=== PATIENT | female | born 1970 | race Caucasian/White ===

== ENCOUNTER → 2016-08-07 | Outpatient (CLI) | payer OTHER ==
--- NOTE | 2016-08-07 21:59 | WWHP ---
CHIEF COMPLAINT: The patient is here for her routine gynecologic exam and mammogram. HPI: This is a 46-year-old, G2, P2 with an LMP of 07/10/2016. The patient is without gynecologic complaints and her is status post vasectomy. She states her periods are regular every month. She did have an ultrasound in 2014, which showed a right complex ovarian cyst measuring 1.7 cm and small fibroids as well as some nabothian cysts. Followup mammogram in 2 to 3 months was recommended, but this was not done. PAST MEDICAL HISTORY: Seizure disorder diagnosed in 2004. She no longer takes prescription medications for this. MEDICATIONS: 1. Ambien 1 q.h.s. 2. Naproxen p.r.n. and 3. Hydrocodone p.r.n. 4. She is using CBD cannabis oil daily and she takes this because of her seizure disorder. ALLERGIES: No known drug allergies. PAST SURGICAL HISTORY: Right rotator cuff surgery in 2007. 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 SOCIAL HISTORY: She admits to smoking 2 cigarettes per day and has about 10 alcoholic drinks per year and denies drug use. She does use the cannabis oil as above. 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 FAMILY HISTORY: Unchanged from the 2015 H&P. REVIEW OF SYSTEMS: Weight has been stable. She denies respiratory, cardiac or GI problems. PHYSICAL EXAM: Blood pressure 128/69. Height 5 feet 4 inches. Weight 175 pounds. Temperature 97.9, pulse 75. This is a well-developed, well-nourished white female who is alert and oriented x3, in no acute distress. HEENT is within normal limits. NECK: Supple without mass or thyromegaly. CHEST AND LUNGS: Clear to auscultation. HEART: Regular rate and rhythm. Breasts are without mass or discharge. Axillary is negative for adenopathy. BACK: Negative for CVA tenderness. ABDOMEN: Soft, nontender, without palpable masses. PELVIC: Normal external genitalia. Cervix and vagina appear normal. There is no significant atrophy. There is no evidence of prolapse. The uterus is midposition, nongravid size and nontender. There are no palpable adnexal masses or tenderness. Rectovaginal is negative for mass or tenderness and is negative for occult blood. EXTREMITIES: Nontender. IMPRESSION: 1. A 46-year-old female whose is status post vasectomy with normal gynecologic exam. 2. History of complex right ovarian cyst in 2015 measuring 1.7 cm with no significant physical findings at this time. She did not have the followup ultrasound recommended. PLAN: 1. Pap smear was deferred, since her last normal one was less than 2 years ago. 2. Self-breast examination was discussed. 3. Mammogram will be done today. 4. Pelvic ultrasound will be scheduled for followup of the right ovarian cyst and a slip was given to patient for this. 5. She will return in 1 year.
--- NOTE | 2016-08-09 10:14 | MM ---
Reason for exam: screening (asymptomatic). Last mammogram was performed 1 year and 5 months ago. Physical Findings: A clinical breast exam by your physician is recommended on an annual basis and results should be correlated with mammographic findings. MG Screening Mammo w CAD Bilateral CC and MLO view(s) were taken. Prior study comparison: March 01, 2015, bilateral MG screening mammo w CAD. March 20, 2013, bilateral digital screening mammo w/CAD. There are scattered fibroglandular densities. No significant changes when compared with prior studies. ASSESSMENT: Negative, BI-RAD 1 RECOMMENDATION: Routine screening mammogram of both breasts in 1 year.
== END | disposition home or self-care (01) ==
LOC: WWCWWP 13:24
PROVIDERS: ATTEND Obstetrics & Gynecology
DX: Z12.31 Encounter for screening mammogram for malignant neoplasm of breast (principal); G40.909 Epilepsy, unspecified, not intractable, without status epilepticus; F17.200 Nicotine dependence, unspecified, uncomplicated; Z79.899 Other long term (current) drug therapy

== ENCOUNTER → 2017-08-21 | Outpatient (CLI) | payer OTHER ==
--- NOTE | 2017-08-21 22:22 | MR ---
EXAMINATION TYPE: MR brain wo con DATE OF EXAM: 08/21/2017 COMPARISON: NONE HISTORY: 47-year-old female arachnoid cyst, dizziness, epilepsy and specified, not intractable. TECHNIQUE: Multiplanar, multisequence images of the brain and brainstem were acquired without IV con trast. Diffusion weighted imaging is performed. FINDINGS: No evidence for acute infarction, hemorrhage, mass, mass effect, midline shift, herniation, effacemen t of basal cisterns, or extra-axial fluid collection. The ventricles and sulci are age-appropriate. Major intracranial flow voids are intact. There is a rounded 6 mm area of signal void near the expect ed region of the anterior indicating artery, axial image 14. T2/FLAIR weighted sequences show no white matter signal abnormality. There is symmetrical and normal-appearing volume to the hippocampi. No abnormal temporal horn dilatat ion and no discrete heterotopia is identified. Midline structures demonstrate normal morphology. The craniocervical junction is normal. There is mild mucosal thickening within the ethmoid air cells and maxillary sinuses. Globes are intac t. IMPRESSION: 1. Findings suspicious for possible 6 mm ACOM aneurysm. Recommend further evaluation with MRA of the [place] of [place]. 2. Otherwise, no intracranial abnormality seen. 3. 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
== END | disposition home or self-care (01) ==
LOC: RADMRIMAIN 19:47
PROVIDERS: ATTEND Psychiatry & Neurology Neurology
DX: G40.909 Epilepsy, unspecified, not intractable, without status epilepticus (principal)
CPT/HCPCS: 70551

== ENCOUNTER → 2017-10-03 | Outpatient (CLI) | payer OTHER ==
--- NOTE | 2017-10-03 23:04 | MR ---
EXAMINATION TYPE: MR angio head wo con DATE OF EXAM: 10/03/2017 COMPARISON: Correlation MRI brain 08/21/2017 HISTORY: 47-year-old female unspecified epilepsy, not intractable. Abnormality on MRI. TECHNIQUE: High-resolution 3-D alxw-ht-vajdcd images focusing on the [place] of [place] were performed without contrast. FINDINGS: There is early takeoff of the right posterior inferior cerebellar artery from the upper V3 segment ri ght vertebral artery. The left vertebral artery is dominant. There is persistent origin to the right posterior cerebral artery. There is a hypoplastic A1 segment right anterior cerebral artery. The A2 segments arise from a 7 mm s accular aneurysm which projects inferiorly at the level of the anterior communicating artery. No significant stenosis or arterial occlusion seen. 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 The A2 segments arise from the superior margin of the aneurysm and are supplied by the left AJ. 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
== END | disposition home or self-care (01) ==
LOC: RADMRIMAIN 21:50
PROVIDERS: ATTEND Nurse Practitioner Acute Care
DX: I67.1 Cerebral aneurysm, nonruptured (principal)
CPT/HCPCS: 70544

== ENCOUNTER → 2019-01-05 | Outpatient (CLI) | payer OTHER ==
[2019-01-05 15:40] LABS: Progesterone 12.4 ng/mL
== END | disposition home or self-care (01) ==
LOC: LABWHC1 10:27
PROVIDERS: ATTEND Obstetrics & Gynecology
DX: N95.1 Menopausal and female climacteric states (principal); G40.509 Epileptic seizures related to external causes, not intractable, without status epilepticus
CPT/HCPCS: 36415; 82670; 83001; 83002; 84144; 84146; 84443

== ENCOUNTER → 2019-12-22 | Outpatient (CLI) | payer BC ==
[2019-12-22 10:39] LABS: HCT 44.9 % (34.0-46.0); MCH 32.5 pg (25.0-35.0); MCHC 33.5 g/dL (31.0-37.0); MCV 96.7 fL (80.0-100.0); Platelet Count 291 k/uL (150-450); RBC 4.64 m/uL (3.80-5.40); WBC 7.5 k/uL (3.8-10.6)
[2019-12-22 16:14] LABS: Progesterone 15.5 ng/mL
[2019-12-22 17:58] LABS: Chol/HDL Ratio 2.44; LDL Cholesterol,Calculated 110.2 mg/dL (0.0-131.0); VLDL Calculation 10.8 mg/dL (5.00-40.00)
[2019-12-22 18:05] LABS: Luteinizing Hormone 5.7 mIU/mL; Prolactin 10.9 ng/mL (2.8-29.2)
[2019-12-22 18:06] LABS: Estradiol 130.3 pg/mL; Follicle Stimulating Hormone 6.8 mIU/mL
== END | disposition home or self-care (01) ==
LOC: LABWHC1 09:50
PROVIDERS: ATTEND Obstetrics & Gynecology
DX: N93.8 Other specified abnormal uterine and vaginal bleeding (principal); Z13.220 Encounter for screening for lipoid disorders; Z13.29 Encounter for screening for other suspected endocrine disorder
CPT/HCPCS: 36415; 80061; 82670; 82947; 83001; 83002; 84144; 84146; 84439; 84443; 84479; 85027

== ENCOUNTER → 2019-12-22 | Outpatient (CLI) | payer BC ==
--- NOTE | 2019-12-23 08:24 | MM ---
Reason for exam: screening (asymptomatic). Last mammogram was performed 3 years and 5 months ago. History: Took hormonal contraceptives for 5 years. Physical Findings: A clinical breast exam by your physician is recommended on an annual basis and results should be correlated with mammographic findings. MG Screening Mammo w CAD Bilateral CC and MLO view(s) were taken. Prior study comparison: August 07, 2016, bilateral MG screening mammo w CAD. March 01, 2015, bilateral MG screening mammo w CAD. There are scattered fibroglandular densities. There is no discrete abnormality. No significant changes when compared with prior studies. ASSESSMENT: Negative, BI-RAD 1 RECOMMENDATION: Routine screening mammogram of both breasts in 1 year.
== END | disposition home or self-care (01) ==
LOC: RADMAMWWP 09:27
PROVIDERS: ATTEND Obstetrics & Gynecology
DX: Z12.31 Encounter for screening mammogram for malignant neoplasm of breast (principal)
CPT/HCPCS: 77067

== ENCOUNTER → 2020-10-11 | Outpatient (CLI) | payer BC ==
[2020-10-11 21:17] LABS: Basophils % (A) 1.3 %; Eosinophils # (A) 0.33 X 10*3/uL (0.04-0.35); Eosinophils % (A) 4.3 %; HGB 15.4 g/dL (12.0-15.0); Lymphocytes # (A) 2.46 X 10*3/uL (0.90-5.00); Lymphocytes % (A) 31.9 %; MCH 31.2 pg (27.0-32.0); MCHC 32.8 g/dL (32.0-37.0); MCV 95.1 fL (80.0-97.0); Mean Platelet Volume 10.5 fL (9.5-12.2); Monocytes # (A) 0.68 X 10*3/uL (0.20-1.00); Monocytes % (A) 8.8 %; Neutrophils # (A) 4.12 X 10*3/uL (1.80-7.70); Neutrophils % (A) 53.4 %; Platelet Count 326 X 10*3/uL (140-440); RBC 4.94 X 10*6/uL (4.10-5.20); RDW 12.9 % (11.5-14.5); WBC 7.71 X 10*3/uL (4.50-10.00)
[2020-10-11 23:42] LABS: Hemoglobin A1C 5.2 % (4.0-6.0)
[2020-10-12 00:22] LABS: African American GFR (CKD) 76.1 (60.0-200.0); Albumin 4.7 g/dL (3.80-4.90); Albumin/Globulin Ratio 2.24 (1.60-3.17); Anion Gap 9.7 mmol/L (4.00-12.00); Carbon Dioxide 23.3 mmol/L (21.6-31.8); Chol/HDL Ratio 3.24; Globulin 2.1 g/dL (1.6-3.3); Non-African American GFR(CKD) 65.6 (60.0-200.0); Potassium 4.7 mmol/L (3.5-5.5); Total Bilirubin 0.5 mg/dL (0.3-1.2); Total Protein 6.8 g/dL (6.2-8.2)
== END | disposition home or self-care (01) ==
LOC: LABWHC1 11:16
PROVIDERS: ATTEND Nurse Practitioner Acute Care
DX: E55.9 Vitamin D deficiency, unspecified (principal); E78.5 Hyperlipidemia, unspecified; R53.83 Other fatigue; R51.9 Headache, unspecified
CPT/HCPCS: 36415; 80053; 80061; 82306; 83036; 85025

== ENCOUNTER → 2021-07-31 | Outpatient (CLI) | payer BC ==
--- NOTE | 2021-08-01 10:34 | MM ---
Reason for exam: screening (asymptomatic). Last mammogram was performed 1 year and 7 months ago. History: Took hormonal contraceptives for 5 years. Taking estrogen beginning at age 51. Physical Findings: A clinical breast exam by your physician is recommended on an annual basis and results should be correlated with mammographic findings. MG Screening Mammo w CAD Bilateral CC and MLO view(s) were taken. Prior study comparison: December 22, 2019, bilateral MG screening mammo w CAD. August 07, 2016, bilateral MG screening mammo w CAD. The breast tissue is heterogeneously dense. This may lower the sensitivity of mammography. There is no discrete abnormality. No significant changes when compared with prior studies. ASSESSMENT: Negative, BI-RAD 1 RECOMMENDATION: Routine screening mammogram of both breasts in 1 year.
== END | disposition home or self-care (01) ==
LOC: RADMAMWWP 16:04
PROVIDERS: ATTEND Family Medicine
DX: Z12.31 Encounter for screening mammogram for malignant neoplasm of breast (principal)
CPT/HCPCS: 77067

== ENCOUNTER 2021-11-28 10:19 | Day surgery (SDC) | payer BC ==
[2021-11-24 09:20] VITALS: BMI 29.5
[~2021-11-28 10:19] MED LIST: LACTATED RINGERS 1,000 ML IV SCH; LIDOCAINE 1% (10MG/ML) FOR IV START INTRADERMA PRN
[2021-11-28 10:51] VITALS: TEMP 97.6
[2021-11-28] MEDS ORDERED: PROPOFOL 10 MG/ML 20 ML VIAL IV ONE (11:13)
--- NOTE | 2021-11-28 11:16 | P.GSHP ---
History of Present Illness H&P Date: 11/28/21 Chief Complaint: Colon cancer screening 51-year-old female here today for colonoscopy. She has not had 1 previously. No bowel complaints. No family history of colon cancer. Past Medical History Past Medical History: Seizure Disorder Additional Past Medical History / Comment(s): epilepsy-last seizure 2020-complex partial seizures,brain aneurysm,degenerative vidal hips-chronic pain History of Any Multi-Drug Resistant Organisms: None Reported Past Surgical History: Orthopedic Surgery Additional Past Surgical History / Comment(s): rotator cuff repair,coil to brain aneurysm Past Anesthesia/Blood Transfusion Reactions: No Reported Reaction, Motion Sickness Smoking Status: Former smoker - Past Family History Mother Family Medical History: No Reported History Father Family Medical History: Cancer Additional Family Medical History / Comment(s): at age 32 with stomach CA Medications and Allergies Home Medications Medication Instructions Recorded Confirmed Type Zolpidem [Ambien] 10 mg PO HS PRN 02/06/15 11/28/21 History Cyanocobalamin (Vitamin B-12) 3,000 mcg PO DAILY 11/24/21 11/28/21 History [Vitamin B-12] Eslicarbazepine Acetate [Aptiom] 800 mg PO QAM 11/24/21 11/28/21 History HYDROcodone/APAP 7.5-325MG [[place] 1 tab PO BID PRN 11/24/21 11/28/21 History 7.5-325] Omega3/Dha/Epa/Fish Oil/Vit D3 1 each PO DAILY 11/24/21 11/28/21 History [[place]-3 + Vitamin D3 Softgel] Potassium Gluconate [Potassium 99 mg PO DAILY 11/24/21 11/28/21 History Gluconate ER] Venlafaxine HCl ER [Effexor XR] 37.5 mg PO QAM 11/24/21 11/28/21 History Allergies Allergy/AdvReac Type Severity Reaction Status Date / Time No Known Allergies Allergy Verified 11/28/21 10:40 Surgical - Exam Vital Signs Temp Pulse Resp BP Pulse Ox 97.6 F 70 16 131/71 97 11/28/21 10:50 11/28/21 10:50 11/28/21 10:50 11/28/21 10:50 11/28/21 10:50 Physical exam: General: Well-developed, well-nourished HEENT: Normocephalic, sclerae nonicteric Abdomen: Nontender, nondistended Extremities: No edema Neuro: Alert and oriented Assessment and Plan (1) Cancer screening Narrative/Plan: Will proceed with colonoscopy at this time Current Visit: Yes Status: Acute Code(s): Z12.9 - ENCOUNTER FOR SCREENING FOR MALIGNANT NEOPLASM, SITE UNSP SNOMED Code(s): 395616883
--- NOTE | 2021-11-28 11:42 | P.PCN ---
Date of Procedure: 11/28/21 Procedure(s) Performed: PREOPERATIVE DIAGNOSIS: Colon cancer screening POSTOPERATIVE DIAGNOSIS: Transverse colon polyp, diverticulosis PROCEDURE: Colonoscopy with snare polypectomy ANESTHESIA: MAC SURGEON: Jax Mcfarlane M.D. SPECIMENS: Polyp ENDOSCOPIC PROCEDURE: The patient was placed on the endoscopy table in the left decubitus position. The Olympus colonoscope was inserted into the anus and passed under direct visualization to the base of the cecum. The appendiceal orifice was visualized. From that point the scope was slowly withdrawn inspecting all surfaces carefully. There were no neoplastic inflammatory or polypoid lesions throughout the cecum and ascending colon. In the transverse colon there was noted to be a sessile polyp that was removed using the snare with cautery technique. The remainder of the transverse descending sigmoid and rectum appeared normal. There was mild left-sided diverticulosis present. Digital rectal examination was normal. The patient was taken to the recovery room in stable condition per anesthesia guidelines. RECOMMENDATIONS: Await biopsy results to determine the timing of the next colonoscopy
[2021-11-28 12:01] VITALS: BP 122/82; PULSE 71; RESP 16
== END 2021-11-28 12:48 | disposition home or self-care (01) ==
LOC: ORWHC2ENDO 10:19
PROVIDERS: ATTEND Surgery
DX: Z12.11 Encounter for screening for malignant neoplasm of colon (principal); G40.909 Epilepsy, unspecified, not intractable, without status epilepticus; Z87.891 Personal history of nicotine dependence; Z80.0 Family history of malignant neoplasm of digestive organs
CPT/HCPCS: 45385; 81025; 88305; J2704

== ENCOUNTER → 2022-06-06 | Outpatient (CLI) | payer BC ==
--- NOTE | 2022-06-06 12:59 | CT ---
EXAMINATION TYPE: CT angio head DATE OF EXAM: 06/06/2022 12:52 PM COMPARISON: MRA brain October 03, 2017 HISTORY: Cerebral aneurysm. CT DLP: 1444.3 mGycm Automated exposure control for dose reduction was used. TECHNIQUE: Performed without and with IV Contrast, patient injected with 80ml mL of Isovue 370. . FINDINGS: Noncontrast images show aneurysm clip near origin of the anterior cerebral arteries causing streak ar tifact. No acute intracranial hemorrhage or midline shift. Ventricles and sulci within normal limits in size. Knapp-white matter differentiation is maintained. The calvarium is intact. CTA images demonstrate patent bilateral vertebral arteries with dominant left vertebral artery to the basilar junction. There is redemonstration of patent bilateral posterior communicating arteries. The re is no significant focal stenosis or aneurysm in the posterior circulation. There is interval aneur ysm clipping of the anterior communicating artery aneurysm. There is hypoplastic right A1 segment wit h filling of the A2 segment due to patent anterior communicating artery redemonstrated. No new aneury sm or significant focal stenosis is identified. IMPRESSION: Interval successful treatment of 7 mm anterior communicating artery aneurysm. No new aneu rysm is seen.
== END | disposition home or self-care (01) ==
LOC: RADCTMAIN 11:22
PROVIDERS: ATTEND Psychiatry & Neurology Neurology
DX: I67.1 Cerebral aneurysm, nonruptured (principal); Z86.79 Personal history of other diseases of the circulatory system; Z98.890 Other specified postprocedural states
CPT/HCPCS: 70496; Q9967

== ENCOUNTER → 2023-10-01 | Outpatient (CLI) | payer BC ==
[2023-10-01 14:22] VITALS: BP 111/77; PULSE 86; RESP 17; TEMP 98.3
--- NOTE | 2023-10-01 16:11 | P.HPOB ---
History of Present Illness H&P Date: 10/01/23 Chief Complaint: the patient is here for her routine gynecologic exam. This is a 53-year-old with an LMP of March 2023. The patient is here to reestablish with this office. She was last seen here in 2016. She believes she had a a pelvic exam about 2 years ago at her PCPs office. Her menstrual periods have been spacing out significantly over the past couple of years. Her LMP was very light and March 2023. Prior to that, she did not have a menstrual period for about 6 months. around March 2023, she started having significant menopausal symptoms including hot flashes, insomnia, feeling tired, and dry skin. Her PCP put her on HRT. She is uncertain of the doses that she is taking. She states she feels "1000 times better" on the HRT. She is without gynecologic complaints at this time. Review of Systems She has had a total net weight gain of 36 pounds since she was last seen in 2016. She states she was put on Wegovy for weight loss and has lost about 22 pounds over the past 6 months while on the medication. Her maximum weight was about 241 pounds. She denies respiratory, cardiac, or GI problems. Past Medical History Past Medical History: Seizure Disorder, Skin Disorder Additional Past Medical History / Comment(s): epilepsy-last seizure 2020-complex partial seizures, cerebral aneurysm(surgically treated) ,degenerative vidal hips- chronic pain, chronic shoulder problems, psoriasis. 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 History of Any Multi-Drug Resistant Organisms: None Reported Past Surgical History: Orthopedic Surgery Additional Past Surgical History / Comment(s): rotator cuff repair,coil to brain aneurysm. Colonoscopy(polyp) 2021 Past Anesthesia/Blood Transfusion Reactions: No Reported Reaction, Motion Sickness Past Psychological History: Anxiety Smoking Status: Current every day smoker (about 3 cigarettes per day.) Past Alcohol Use History: Rare (4 per year.) Past Drug Use History: None Reported Additional History: she has been since 2001 and is retired from a [employer]. - Past Family History Mother Family Medical History: No Reported History Father Family Medical History: Cancer Additional Family Medical History / Comment(s): at age 32 with stomach CA Medications and Allergies Home Medications Medication Instructions Recorded Confirmed Type Zolpidem [Ambien] 10 mg PO HS PRN 08/09/15 04/02/24 History Cyanocobalamin (Vitamin B-12) 3,000 mcg PO DAILY 11/24/21 10/01/23 History [Vitamin B-12] HYDROcodone/APAP 7.5-325MG [[place] 1 tab PO BID PRN 11/24/21 10/01/23 History 7.5-325] Omega3/Dha/Epa/Fish Oil/Vit D3 1 each PO DAILY 11/24/21 10/01/23 History [[place]-3 + Vitamin D3 Softgel] Loratadine/Pseudoephedrine 1 tab PO DAILY 10/01/23 10/01/23 History [Loratadine-D 24Hr Tablet] Progesterone, Micronized 200 mg PO DAILY 10/01/23 10/01/23 History [Progesterone] Semaglutide [Wegovy] 2.4 mg INJ WEEKLY 10/01/23 10/01/23 History estradioL 0.5 mg PO DAILY 10/01/23 10/01/23 History Allergies Allergy/AdvReac Type Severity Reaction Status Date / Time No Known Allergies Allergy Verified 10/01/23 13:41 Exam Vital Signs Temp Pulse Resp BP Pulse Ox 10/01/23 13:44 98.3 F 86 17 111/77 97 Intake and Output 10/01/23 10/01/23 10/01/23 06:59 14:59 22:59 Other: Weight 95.708 kg height 5 feet 4 inches, weight 211 pounds, BMI 36.2. This is a well-developed well-nourished white female who is alert and oriented times 3 in no acute distress. HEENT: Within normal limits. NECK: Supple without mass or thyromegaly. CHEST AND LUNGS: Clear to auscultation. HEART: Regular rate and rhythm. BREASTS: Are without mass or discharge. AXILLARY EXAM: Negative for adenopathy. BACK: Negative for CVA tenderness. ABDOMEN: Soft, nontender, without palpable masses. PELVIC EXAM: Normal external genitalia with minimal atrophy. Cervix and vagina appear normal. There is no unusual discharge. There is no evidence of prolapse. The uterus is midposition, about 10-12 weeks size and nontender. There are no palpable adnexal masses or tenderness. RECTAL EXAM:rectovaginal exam is negative for mass or tenderness and is negative for occult blood. EXTREMITIES: Nontender. IMPRESSION: 1. 53-year-old perimenopausal female who is on combination hormone replacement t herapy for menopausal symptoms including mild hot flashes, dry skin, insomnia, and feeling tired. She states these symptoms have significantly improved with HRT. 2. Enlarged uterus approximately 10-12 week size. She does have a history of uterine fibroids and this is probably related to this finding. 3.History of complex right ovarian cyst measuring 1.7 cm by a 2015 ultrasound. She believes she had a follow-up ultrasound done here, but this could not be found to confirm this. 4. frequent UTIs which seem to be associated with sexual intercourse. PLAN: 1. Pap smear cotest was performed. 2. Self breast awareness was discussed with the patient. We have also discussed symptoms associated with inflammatory breast cancer. 3. screening mammogram will be done today. 4. pelvic ultrasound was recommended to further evaluate the enlarged uterus and to reevaluate for ovarian cysts. 5. We have had a long discussion regarding HRT. We have discussed the the WHI study findings including the increased risk for breast cancer, heart attack, stroke and blood clots with HRT. I have recommended that she try to be on the lowest effective dose for the shortest amount of time possible. She will dis cuss this with her PCP, who prescribed the HRT. She was instructed to call if she does have abnormal vaginal bleeding. We will try to obtain the name of the HRT many occasions and the doses from her PCP. 6. She states she has been treated several times for UTIs and she believes they are associated with sexual intercourse. I have stressed the importance of voiding after intercourse. I have also encouraged her to to try to empty the bladder as completely as possible, not by pushing, but by giving herself more time and by relaxing. If she continues to have recurrent bladder infections associated with sexual intercourse, we have discussed the option of low-dose antibiotic, such as nitrofurantoin, taken after each act of sexual intercourse. 7. She was advised to return in one year for her annual well woman exam And as needed.
--- NOTE | 2023-10-03 01:00 | MM ---
Reason for Exam: Screening (asymptomatic). Last mammogram was performed 2 year(s) and 3 month(s) ago. Patient History: Menarche at age 12. First Full-Term at age 25. Perimenopausal. Currently using Estrogen, starting at age 51. Patient used Hormonal Contraceptives for 5 years. Risk Values: Sabrina 5 year model risk: 1.2%. NCI Lifetime model risk: 9.4%. Prior Study Comparison: 08/07/2016 Bilateral Screening Mammogram, [facility]. 12/22/2019 Bilateral Screening Mammogram, [facility]. 07/31/2021 Bilateral Screening Mammogram, [facility]. Tissue Density: There are scattered areas of fibroglandular density. Findings: Analyzed By CAD. The pattern is symmetrical. No significant interval change No suspicious groups of microcalcifications, spiculated or lobular masses, architectural distortion or other secondary signs of malignancy are mammographically apparent. Overall Assessment: Benign, BI-RAD 2 Management: Screening Mammogram of both breasts in 1 year. A negative mammogram report should not preclude additional follow up of suspicious palpable abnormalities. Patient should continue monthly self breast exam. A clinical breast exam by your physician is recommended on an annual basis and results should be correlated with mammographic findings. Electronically signed and approved by: Fermin Booth D.O. Radiologis
== END ==
LOC: WWCWWP 13:32
PROVIDERS: ATTEND Obstetrics & Gynecology
DX: Z01.419 Encounter for gynecological examination (general) (routine) without abnormal findings (principal); Z12.31 Encounter for screening mammogram for malignant neoplasm of breast; N95.1 Menopausal and female climacteric states; N85.2 Hypertrophy of uterus; N39.0 Urinary tract infection, site not specified; N83.209 Unspecified ovarian cyst, unspecified side; G89.29 Other chronic pain; G47.00 Insomnia, unspecified; F17.200 Nicotine dependence, unspecified, uncomplicated; Z92.0 Personal history of contraception
CPT/HCPCS: 77063; 77067

== ENCOUNTER → 2023-10-03 | Outpatient (CLI) | payer BC ==
--- NOTE | 2023-10-03 12:32 | US ---
EXAMINATION TYPE: US pelvic complete DATE OF EXAM: 10/03/2023 COMPARISON: NONE CLINICAL INDICATION: Female, 53 years old with history of [id number] ENLARGED UTERUS, D259 KNOWN UTERINE L EIOMYOMA; History of fibroids TECHNIQUE: Transabdominal (TA). Date of LMP: 6 months ago EXAM MEASUREMENTS: Uterus: 8.6 x 4.2 x 5.3 cm Endometrial Stripe: 0.5 cm Right Ovary: 2.4 x 1.8 x 1.1 cm Left Ovary: 2.5 x x 1.1 x 1.8 cm 1. Uterus: Anteverted heterogeneous. fibroids noted, largest = 3.2 x 2.7 x 3.0cm 2. Endometrium: appears wnl 3. Right Ovary: appears wnl 4. Left Ovary: cystic lesion = 2.8 x 2.3 x 2.9cm 5. Bilateral Adnexa: wnl 6. Posterior cul-de-sac: wnl IMPRESSION: Fibroid uterus. Probable functional left ovarian cyst. This could be confirmed with follow-up study i n 6 weeks.
== END | disposition home or self-care (01) ==
LOC: RADUSWWP 11:05
PROVIDERS: ATTEND Obstetrics & Gynecology
DX: D25.9 Leiomyoma of uterus, unspecified (principal)
CPT/HCPCS: 76856

== ENCOUNTER → 2023-10-22 | Outpatient (CLI) | payer BC ==
[2023-10-22 16:18] LABS: Chol/HDL Ratio 3.32 Ratio; Glucose 88 mg/dL (70-110); LDL Cholesterol,Calculated 135.6 mg/dL (0.0-131.0); VLDL Calculation 12.54 mg/dL (5.00-40.00)
== END | disposition home or self-care (01) ==
LOC: LABWHC1 09:52
PROVIDERS: ATTEND Family Medicine
DX: Z00.00 Encounter for general adult medical examination without abnormal findings (principal)
CPT/HCPCS: 36415; 80061; 82947; 83036

== ENCOUNTER → 2024-04-01 | Outpatient (CLI) | payer BC | END | disposition home or self-care (01) | LOC: LABWHC1 13:46 | PROVIDERS: ATTEND Family Medicine | DX: Z79.890 Hormone replacement therapy (principal) | CPT/HCPCS: 36415; 84403 ==

== ENCOUNTER → 2024-06-15 | Outpatient (CLI) | payer BC ==
--- NOTE | 2024-06-15 15:14 | US ---
EXAMINATION TYPE: US pelvic complete DATE OF EXAM: 06/15/2024 COMPARISON: 10/03/2023 CLINICAL INDICATION: Female, 54 years old with history of N83.00 FOLLICULAR CYST OF OVARY, UNSPECIFIE D SIDE; Left Ov cyst in September TECHNIQUE: Transabdominal (TA). Transabdominal grayscale sonographic images of the pelvis were acquired. Doppler imaging: Not performed. FINDINGS: Date of LMP: post thi EXAM MEASUREMENTS: Uterus: 8.5x4.5x4.2 cm Endometrial Stripe: 0.4 cm Right Ovary: 1.9x1.3x1.1 cm Left Ovary: 2.4x1.4x1.1 cm 1. Uterus: Anteverted largest fibroid measures 3.5x3.5x3.0cm 2. Endometrium: wnl 3. Right Ovary: wnl 4. Left Ovary: wnl 5. Bilateral Adnexa: Obscured by overlying bowel gas 6. Posterior cul-de-sac: wnl IMPRESSION: 1. No evidence for acute process. 2. Fibroid change. 3. Endometrium within normal limits for size. [facility], , 06/15/2024 3:11 PM
--- NOTE | 2024-06-16 09:27 | P.PN ---
Progress Note - Text Progress Note Date: 06/16/24 OUTPATIENT FOLLOW-UP NOTE TEST(S)/RESULTS: Pelvic ultrasound done on 06/15/2024 shows that the ovaries appear. She does have uterine fibroids with the largest measuring 3.5 cm. METHOD OF NOTIFICATION: Patient was notified by phone on 06/16/2024. PATIENT COMMENTS: DIAGNOSIS: Uterine fibroids with the largest measuring 3.5 cm. DISCUSSION: We have discussed how her uterus belts above average in size on her last exam. We have discussed how uterine fibroids often will decrease in size after the menopause. This will be followed clinically and we will consider repeating the ultrasound if her uterus seems to be larger or if she is having problems that could be associated with uterine fibroids. PLAN: As above. She will be due for her annual examination in approximately 4 to 5 months.
== END | disposition home or self-care (01) ==
LOC: RADUSWWP 13:15
PROVIDERS: ATTEND Obstetrics & Gynecology
DX: N83.02 Follicular cyst of left ovary (principal); D25.9 Leiomyoma of uterus, unspecified
CPT/HCPCS: 76856

== ENCOUNTER → 2024-10-14 | Outpatient (CLI) | payer BC ==
[2024-10-14 15:48] LABS: Chol/HDL Ratio 3.41 Ratio; LDL Cholesterol,Calculated 153.4 mg/dL (0.0-131.0); VLDL Calculation 9.82 mg/dL (5.00-40.00)
[2024-10-14 15:49] LABS: ALT 16 U/L (8-44); AST 16 U/L (13-35); Albumin 4.4 g/dL (3.8-4.9); Alkaline Phosphatase 41 U/L (41-126); BUN/Creat Ratio 17.12 Ratio (12.00-20.00); Blood Urea Nitrogen 13.7 mg/dL (9.0-27.0); Calcium 9.5 mg/dL (8.7-10.3); Chloride 105 mmol/L (96-109); Globulin 2.1 g/dL (1.6-3.3); Glucose 74 mg/dL (70-110); Potassium 4.6 mmol/L (3.5-5.5); Sodium 138 mmol/L (135-145); Total Bilirubin 0.5 mg/dL (0.3-1.2); Total Protein 6.5 g/dL (6.2-8.2)
[2024-10-14 15:57] LABS: Basophils # (A) 0.11 X 10*3/uL (0.00-0.10); Basophils % (A) 1.7 %; Eosinophils # (A) 0.18 X 10*3/uL (0.04-0.35); Eosinophils % (A) 2.9 %; HCT 42.7 % (37.2-46.3); HGB 14.4 g/dL (12.0-15.0); Lymphocytes # (A) 2.59 X 10*3/uL (0.90-5.00); Lymphocytes % (A) 41.1 %; MCHC 33.7 g/dL (32.0-37.0); MCV 91.8 FL (80.0-97.0); Mean Platelet Volume 9.9 FL (9.5-12.2); Monocytes # (A) 0.54 X 10*3/uL (0.20-1.00); Monocytes % (A) 8.6 %; NRBC Per 100 WBC 0 X 10*3/uL (0.00-0.01); Neutrophils # (A) 2.87 X 10*3/uL (1.80-7.70); Neutrophils % (A) 45.5 %; Platelet Count 388 X 10*3/uL (140-440); RBC 4.65 X 10*6/uL (4.10-5.20); RDW 13.2 % (11.5-14.5)
== END | disposition home or self-care (01) ==
LOC: LABWHC1 10:38
PROVIDERS: ATTEND Family Medicine
DX: I10 Essential (primary) hypertension (principal); Z79.899 Other long term (current) drug therapy
CPT/HCPCS: 36415; 80053; 80061; 83036; 84443; 85025

== ENCOUNTER → 2024-11-17 | Outpatient (CLI) | payer BC ==
[2024-11-17 11:45] VITALS: BP 116/75; PULSE 93; RESP 16; TEMP 97.8
--- NOTE | 2024-11-17 12:17 | P.HPOB ---
History of Present Illness H&P Date: 11/17/24 Chief Complaint: The patient is here for her routine gynecologic exam and ma mmogram. This is a 54-year-old G2, P2 with an LMP of early 2023. The patient states she has been amenorrheic for greater than 1 year now. She states she continues to do well with HRT that her PCP has been prescribing. She states she feels much better using the HRT and this has helped with hot flashes, mood and "brain fog" issues. She is without gynecologic complaints and denies any postmenopausal bleeding. Review of Systems The patient has lost 6 pounds over the last year. She is on Zepbound for weight loss. She denies respiratory, cardiac, or G.I. problems. Past Medical History Past Medical History: Seizure Disorder Additional Past Medical History / Comment(s): epilepsy-last seizure 2020-complex partial seizures,brain aneurysm,degenerative vidal hips-chronic pain. 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 History of Any Multi-Drug Resistant Organisms: None Reported Past Surgical History: Orthopedic Surgery Additional Past Surgical History / Comment(s): rotator cuff repair,coil to brain aneurysm. Colonoscopy 2021. Past Anesthesia/Blood Transfusion Reactions: No Reported Reaction, Motion Sickness Past Psychological History: No Psychological Hx Reported Smoking Status: Current every day smoker (About 3 cigarettes/day.) Past Alcohol Use History: Rare (0-4 drinks per year.) Past Drug Use History: None Reported Additional History: She has been since 2001. She retired from [employer]. 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 - Past Family History Mother Family Medical History: No Reported History Father Family Medical History: Cancer Additional Family Medical History / Comment(s): at age 32 with stomach CA Medications and Allergies Home Medications Medication Instructions Recorded Confirmed Type Zolpidem [Ambien] 10 mg PO HS PRN 02/06/15 10/01/23 History HYDROcodone/APAP 7.5-325MG [Sophia 1 tab PO BID PRN 11/24/21 10/01/23 History 7.5-325] Loratadine/Pseudoephedrine 1 tab PO DAILY 10/01/23 10/01/23 History [Loratadine-D 24Hr Tablet] Progesterone, Micronized 200 mg PO DAILY 10/01/23 10/01/23 History [Progesterone] estradioL 0.5 mg PO DAILY 10/01/23 10/01/23 History Magnesium 200 mg PO DAILY 11/17/24 11/17/24 History Tirzepatide [Zepbound] 7.5 mg IM WEEKLY 11/17/24 11/17/24 History Allergies Allergy/AdvReac Type Severity Reaction Status Date / Time No Known Allergies Allergy Verified 11/17/24 11:32 Exam Vital Signs Temp Pulse Resp BP Pulse Ox 11/17/24 11:39 97.8 F 93 16 116/75 96 Intake and Output 11/16/24 11/17/24 11/17/24 22:59 06:59 14:59 Other: Weight 74.843 kg Height 5 feet 3 inches, weight 165 pounds, BMI 29.2. This is a well-developed well-nourished white female who is alert and oriented times 3 in no acute distress. HEENT: Within normal limits. NECK: Supple without mass or thyromegaly. CHEST AND LUNGS: Clear to auscultation. HEART: Regular rate and rhythm. BREASTS: Are without mass or discharge. AXILLARY EXAM: Negative for adenopathy. BACK: Negative for CVA tenderness. ABDOMEN: Soft, nontender, without palpable masses. PELVIC EXAM: Normal external genitalia with mild atrophy. Cervix and vagina appear normal with mild atrophy. There is no unusual discharge. There is no e vidence of prolapse. The uterus is midposition, 8 to 10-week size and nontender. There are no palpable adnexal masses or tenderness. RECTAL EXAM: Rectovaginal exam is negative for mass or tenderness and is negative for occult blood. EXTREMITIES: Nontender. IMPRESSION: 1. 54-year-old menopausal female doing well on HRT which has improved vasomotor symptoms as well as other menopausal symptoms. 2. History of uterine fibroids with only mild enlargement of the uterus which is smaller than her previous exam. Otherwise unremarkable gynecologic exam. PLAN: 1. Pap smear was deferred since she had a negative Pap smear cotest on 10/01/2023 2. Self breast awareness was discussed with the patient. We have also discussed symptoms associated with inflammatory breast cancer. 3. Screening mammogram will be done today. 4. Osteoporosis prevention was discussed. I have stressed the importance of adequate calcium, vitamin D and regular exercise. Recommended amounts of calcium and vitamin D were also discussed. 5. We have had a long discussion regarding HRT. We have discussed the slight increased risk for heart attack, stroke, breast cancer, and blood clots. I have recommended that she try to slowly wean from HRT as I would recommend that she be off of HRT by the age of 60. She states she has done so well with HRT and feels so much better, that she does not want to try to wean at this time. To get the HRT prescriptions from her PCP. 6. He was instructed to call if she does have any vaginal bleeding. 7. She was advised to return in one year for her annual well woman exam.
--- NOTE | 2024-11-17 12:35 | MM ---
Reason for Exam: Screening (asymptomatic). Last mammogram was performed 1 year(s) and 1 month(s) ago. Patient History: Menarche at age 12. First Full-Term at age 25. Postmenopausal. Currently using Estrogen, starting at age 51. Patient used Hormonal Contraceptives for 5 years. Risk Values: Sabrina 5 year model risk: 1.3%. NCI Lifetime model risk: 9.3%. Prior Study Comparison: 12/22/2019 Bilateral Screening Mammogram, [facility]. 07/31/2021 Bilateral Screening Mammogram, [facility]. 10/01/2023 Bilateral MG 3D screening mammo w/cad, [facility]. Tissue Density: The breasts are almost entirely fatty. Findings: Analyzed By CAD. Right breast: There is no suspicious group of microcalcifications or new suspicious mass. Left breast: There is no suspicious group of microcalcifications or new suspicious mass. Overall Assessment: Negative, BI-RAD 1 Management: Screening Mammogram of both breasts in [address] [facility] will attempt to contact patient to return for supplemental views and ultrasound if indicated. Patient should continue monthly self-breast exams. A clinical breast exam by your physician is recommended on an annual basis. This exam should not preclude additional follow-up of suspicious palpable abnormalities. Note on Sabrina scores and lifetime risk: 1. A Sabrina score greater than 3% is considered moderate risk. If this is the case, consider specialist referral to assess eligibility for a risk reducing agent. 2. If overall lifetime risk for the development of breast cancer is 20% or higher, the patient may qualify for future screening with alternating mammogram and breast MRI. [facility], , 11/17/2024 12:31 PM. Electronically signed and approved by: Dylon Roche DO
== END ==
LOC: WWCWWP 11:18
PROVIDERS: ATTEND Obstetrics & Gynecology
DX: Z01.419 Encounter for gynecological examination (general) (routine) without abnormal findings (principal); Z12.31 Encounter for screening mammogram for malignant neoplasm of breast; N95.1 Menopausal and female climacteric states; N85.2 Hypertrophy of uterus; F17.210 Nicotine dependence, cigarettes, uncomplicated; Z86.018 Personal history of other benign neoplasm; Z79.890 Hormone replacement therapy
CPT/HCPCS: 77067

== ENCOUNTER → 2025-01-04 | Outpatient (CLI) | payer BC ==
--- NOTE | 2025-01-04 09:01 | CT ---
EXAMINATION TYPE: CT angio head CT DLP: 1995 mGycm, Automated exposure control for dose reduction was used. DATE OF EXAM: 01/04/2025 8:49 AM COMPARISON: CT head 06/06/2022, MRA head 10/03/2017. 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 Noncontrast imaging of the head was performed the admini stration of intravenous contrast. Axial images are supplemented with 3D reconstructions which were po st-processed at an independent workstation. NASCET criteria used. FINDINGS: Brain: Extra-axial spaces: No abnormal extra-axial fluid collections. Ventricular system: Within normal limits Cerebral parenchyma: No acute intraparenchymal hemorrhage or mass effect. The petersen-white junction is well differentiated. Cerebellum: Unremarkable. Mass effect: No evidence of midline shift. Soft tissues: Normal. Calvarium/osseous structures: No depressed skull fracture. Paranasal sinuses and mastoid air cells: Clear Visualized orbits: Orbital contents are intact. Intracranial vasculature: Noncontrast images show aneurysm clip near origin of the anterior cerebral arteries causing streak artifact. CTA images demonstrate patent bilateral vertebral arteries with dominant left vertebral artery to the basilar junction. There is redemonstration of patent bilateral posterior communicating arteries. 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 No significant focal stenosis or aneurysm in the posterior circulation. Redemonstration of aneurysm clipping of the anterior communicating artery aneurysm. There is hypoplas tic right A1 segment with filling of the A2 segment due to patent anterior communicating artery redem onstrated. No new aneurysm or significant focal stenosis is identified. 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 [facility], , 01/04/2025 8:59 AM
== END | disposition home or self-care (01) ==
LOC: RADCTMAIN 07:58
PROVIDERS: ATTEND Psychiatry & Neurology Neurology
DX: I67.1 Cerebral aneurysm, nonruptured (principal); Z86.79 Personal history of other diseases of the circulatory system
CPT/HCPCS: 70496; Q9967